=== PATIENT | female | born 2000 | race Caucasian/White ===

== ENCOUNTER 2023-10-07 22:03 | Emergency (ER) | payer BC, SELFPAY ==
[2023-10-07 22:07] VITALS: BP 141/95
--- NOTE | 2023-10-07 22:51 | ED.GENMED ---
History of Present Illness
General
Chief Complaint: Allergic Reaction
Source: patient
Time Seen by Provider: 10/07/23 22:40
Travel History
Have you had any contact with someone who has COVID-19?: No
Do you have any symptoms of coronavirus? Fever > 100 degrees, chills, cough, shortness of breath, sore throat, loss of taste or smell, muscle aches, or headache?: No
History of Present Illness
History of Present Illness:
23-year-old female presenting to the emergency department for evaluation of hives that she states started late last night into early this morning, no clear etiology for the symptoms although patient does note she changed her bed sheets recently but
is overall unsure if this could be the potential cause. Notes that she took a bath with baking soda twice this evening symptoms persisted prompting her to come in for further evaluation. She did not attempt any bvyz-aec-gaomzum medications prior
to arrival. She denies any fevers, chills, rigors, difficulty swallowing or breathing, cough, vomiting or any other concerns.
Past History
Past History
ED Past Medical History: Psychiatric (Anxiety)
ED Past Surgical History: Other (Benign removal of a mass of her jaw)
Social History
Tobacco: Non-smoker
Alcohol: None
Drug: None
Personal: Single
Living: with family
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
Family History
Family History: Other (Maternal grandfather with severe Crohn's disease with multiple resections, maternal aunt with IBS, mother with hyperthyroidism with thyroidectomy. Maternal uncle with abnormal duct in his pancreas recurrent pancreatitis. No
family history of colon cancer or other cancers. No family history of childhood cancers. Her 2 sisters and father are alive and well with no past medical history)
Review of Systems
Review of Systems
All Other Systems: ROS reviewed and negative except as documented in HPI and ROS
Phy Exam
Physical Exam
Physical Exam:
GENERAL: Alert , in no apparent distress, somewhat anxious
EYE: conjunctiva clear
NECK: Supple
ENT: o/p clr, mmm.uvula midline, airway patent
CARDIAC: tachycardic rate and rhythm
LUNGS: Clear breath sounds bilaterally, no acute respiratory distress, no wheezes/rales/rhonchi
NEUROLOGICAL: Alert and oriented
SKIN: Warm and dry, skin intact. Diffuse urticaria from the back of the neck extending down the back and onto the abdomen and bilateral upper and lower extremities, erythematous, blanching
MUSCULOSKELETAL: well perfused.
PSYCH: Normal and appropriate interaction.
Scores
Heart Failure Risk
Heart Failure Risk Score: Not Applicable
Heart Score for Chest Pain Patients
STEMI patient?: Not applicable
Withdrawal Assessment of Alcohol
Withdrawal Assessment Completed?: Not applicable
Course
Orders/Labs/Results
Orders:
Orders
10/07/23 22:50
Diphenhydramine [Benadryl] 50 mg PO NOW STA
Famotidine [Pepcid] 20 mg PO NOW STA
Prednisone [Deltasone] 50 mg PO NOW STA
Vital Signs
Initial and Last Documented VS:
Initial Vital Signs
Temp Pulse Resp BP Pulse Ox
98.1 F 120 20 141/95 98
10/07/23 22:07 10/07/23 22:07 10/07/23 22:07 10/07/23 22:07 10/07/23 22:07
Last Documented Vital Signs
Temp Pulse Resp BP Pulse Ox
98.1 F 120 20 141/95 98
10/07/23 22:07 10/07/23 22:07 10/07/23 22:07 10/07/23 22:07 10/07/23 22:07
MDM/Problems Addressed
Differential Diagnosis Includes:
Contact dermatitis, no concern for infectious etiology, no concern for anaphylactic reaction
MDM/Problems Addressed:
23-year-old female presenting emergency department for evaluation of diffuse hives. No clear etiology for symptoms but they do not appear to be emergent in nature. Will treat with Benadryl, prednisone and Pepcid. 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 Aware of return precautions but otherwise stable for discharge home. First dose medication given prior to discharge.
*Pulse Oximetry
Patient hypoxic: no
*Critical Care Note
Total Time (30-74mins, 75-104mins- exclusive of procedures): Not Applicable
ED Attending Note
-
Portions of this chart may have been created with voice recognition software.� Occasional wrong word or��sound alike� substitutions may have occurred due to the inherent limitations of voice recognition software.
Discharge Plan
Departure
Patient Disposition: Home (Routine Discharge)
Date of Disposition: 10/07/23
Time of Disposition: 22:51
Patient with high blood pressure during this ER visit?: Yes
Discharge Problem:
Urticaria
Instructions: Marielenaes (DC)
Prescriptions:
New
prednisone 10 mg Tablet
See Rx Instructions .ROUTE .COMPLEX Qty: 30 0RF
Rx Instructions:
Take By Mouth:
40 mg daily x3 days, 30 mg daily x3 days,
20 mg daily x3 days, 10 mg daily x3 days.
No Action
cephalexin [Keflex] 500 MG capsule
500 mg PO TID Qty: 20 0RF
doxycycline hyclate 100 MG capsule
100 mg PO Q12 Qty: 13 0RF
sulfamethoxazole-trimethoprim 1 TABLET tablet
1 tab PO BID Qty: 14 0RF
mupirocin 1 APPLIC ointment
1 applic topical TID Qty: 1 0RF
Referrals:
Princess Phillips MD [Consulting Staff] - (Call for appointment as needed)
Interventions
Interventions:
*Risk Screen - Suicide Last Done: 10/07/23 22:07
*General Assessment Last Done: 10/07/23 22:07
*Neglect/Abuse Screening Last Done: 10/07/23 22:07
ED- Fall Risk Assessment Last Done: 10/07/23 22:07
*ED COVID-19 Vaccine History Last Done: 10/07/23 22:07
Discharge Date and Time
Print Language: CAMEROONIAN
[2023-10-07] MEDS: BENADRYL 50 MG PO (23:00)
[2023-10-07] MEDS: PEPCID 20 MG PO (23:00)
[2023-10-07] MEDS: DELTASONE 50 MG PO (23:00)
== END 2023-10-07 23:12 | disposition home or self-care (01) ==
LOC: EMR 22:03
PROVIDERS: EMERGENCY PHYSICIAN Emergency Medicine; FAMILY PHYSICIAN Physician Assistant
DX: L50.9 Urticaria, unspecified (principal); R03.0 Elevated blood-pressure reading, without diagnosis of hypertension
CPT/HCPCS: 99283